=== PATIENT | female | born 1965 | race Caucasian/White ===

== ENCOUNTER 2016-07-21 10:02 | Outpatient (CLI) | payer OTHER ==
[2014-10-28 10:21] VITALS: BP 122/71
[2016-07-21 10:49] LABS: eGFR (African) > 60; eGFR (Non-African) > 60
== END 2016-07-21 10:03 ==
LOC: LAB 10:02
PROVIDERS: ATTEND Family Medicine
DX: Z00.00 Encounter for general adult medical examination without abnormal findings (principal)
CPT/HCPCS: 36415; 80053; 80061

== ENCOUNTER 2017-06-08 09:29 | Outpatient (CLI) | payer OTHER ==
[2014-10-28 10:21] VITALS: BP 122/71
[2017-06-08 10:18] LABS: eGFR (African) > 60; eGFR (Non-African) > 60
== END 2017-06-08 09:30 ==
LOC: LAB 09:29
PROVIDERS: ATTEND Family Medicine
DX: Z00.00 Encounter for general adult medical examination without abnormal findings (principal); E03.9 Hypothyroidism, unspecified
CPT/HCPCS: 36415; 80053; 80061; 84443

== ENCOUNTER 2017-11-14 09:13 | Day surgery (SDC) | payer OTHER ==
[2014-10-28 10:21] VITALS: BP 122/71
[2017-11-14] MEDS ORDERED: 0.9 % SODIUM CHLORIDE 500 ML IV ONE (12:00)
[2017-11-14] MEDS ORDERED: PROPOFOL 200 MG/20 ML VIAL IV ONE (12:00)
[2017-11-14] MEDS ORDERED: LACTATED RINGERS 1,000 ML IV.SOLN IV ONE (12:00)
--- NOTE | 2017-11-14 12:01 | GI Report ---
REFERRING PHYSICIAN: Dr. Mary Shook D[facility] ROOM ATTENDANT: Akhil Orourke MD PROCEDURE MEDICATION: Propofol as per anesthesia. INDICATIONS: Patient is a 52-year-old woman whose mother had colon cancer at 32. Patient has had multiple polyps. She reports she has been a chronic cigarette smoker. She is referred for follow up high risk surveillance. PROCEDURE PERFORMED: Colonoscopy and polypectomy. PROCEDURE: An Olympus video colonoscope was advanced to the rectum and slowly advanced all the way to the cecum. The appendiceal orifice and terminal ileum were normal. In the ascending colon, patient had 2 polyps removed between 3 mm to 4 mm in size and sessile with electrocautery hot snare. In the transverse colon, no additional lesions notes. Descending colon with a lot of redundancy. In the sigmoid colon at 30 cm, patient had another 3 mm to 4 mm flat polyp removed with electrocautery. Retroflexion of the rectum was normal. Patient tolerated the procedure well. FINDINGS: Three polyps removed. RECOMMENDATIONS: 1. A high-fiber diet. 2. Follow-up colonoscopy within 5 years pending the pathology of the polyp. 3. Again, I recommended the patient discontinue tobacco usage. 4. She should follow up with Dr. Shook cc: Dr. [facility] Shook [facility]
== END 2017-11-14 09:14 ==
LOC: OPSURG 09:13
PROVIDERS: ATTEND Internal Medicine Gastroenterology
DX: D12.2 Benign neoplasm of ascending colon (principal); D12.5 Benign neoplasm of sigmoid colon; Z87.891 Personal history of nicotine dependence
CPT/HCPCS: J2704; J7060; J7120; 45385; S1016

== ENCOUNTER 2019-01-24 15:44 | Outpatient (CLI) | payer OTHER ==
[2014-10-28 10:21] VITALS: BP 122/71
[2019-01-24 17:28] LABS: eGFR (Non-African) > 60
[2019-01-24 17:29] LABS: HDL 62 mg/dL (>40)
== END 2019-01-24 15:49 | disposition home or self-care (01) ==
LOC: LAB 15:44
PROVIDERS: ATTEND Family Medicine
DX: Z13.220 Encounter for screening for lipoid disorders (principal); Z13.29 Encounter for screening for other suspected endocrine disorder
CPT/HCPCS: 36415; 80053; 80061; 84443; 88148; G0143